=== PATIENT | female | born 1985 | race Two or more races ===

== ENCOUNTER 2020-10-12 12:47 | Emergency (ER) | payer OTHER ==
[~2020-10-12] VITALS: Ht 157.5 cm; Wt 67.1 kg
[2020-10-12 12:58] VITALS: BP 130/88
--- NOTE | 2020-10-12 15:05 | NUR ---
Patient given discharge instructions and they have confirmed that they understand the instructions. Patient ambulatory with steady gait. NAD, all questions answered appropriately, denies additional needs at this time. No personal belongings left in room after discharge.
== END 2020-10-12 15:06 | disposition home or self-care (01) ==
LOC: ED 13:58
DX: G56.01 Carpal tunnel syndrome, right upper limb (principal)
CPT/HCPCS: 99281